=== PATIENT | male | born 1975 | race Two or more races ===

== ENCOUNTER 2023-08-12 07:31 | Inpatient (IN) | payer MEDICAID, OTHER ==
[~2023-08-12] VITALS: Ht 160 cm; Wt 80.0 kg
[2023-08-12 07:40] VITALS: PULSE 65; RESP 16; O2SAT 97
[2023-08-12 07:57] LABS: Basophils # (auto) 0.1 10 ^3/uL (0-0.2); Basophils % (auto) 0.6 % (0.0-2.0); Eosinophils # (auto) 0.1 10 ^3/uL (0-0.8); Eosinophils % (auto) 1.4 % (0.0-7.0); Hematocrit 45.2 % (41.0-53.0); Hemoglobin 15.5 g/dL (13.5-17.5); Lymphocytes % (auto) 20.4 % (10.0-50.0); Mean Corpuscular Hemoglobin 30.9 pg (28.0-32.0); Mean Corpuscular Hgb Conc. 34.2 g/dL (32.0-36.0); Mean Corpuscular Volume 90.3 fL (80.0-100.0); Monocytes # (auto) 0.8 10 ^3/uL (0-1.3); Monocytes % (auto) 7.6 % (0.0-12.0); Neutrophils # (auto) 6.9 10 ^3/uL (1.6-8.6); Nucleated Red Blood Cells % 0.2 %; Red Blood Cells 5.01 10^6/uL (4.5-5.90); White Blood Cell 9.9 10^3/uL (4.4-10.8)
[2023-08-12 08:07] LABS: Chloride 107 mmol/L (98-107); Potassium 3.6 mmol/L (3.5-5.1); Sodium 139 mmol/L (136-145)
[2023-08-12 08:08] LABS: Anion Gap 4 (5-15); Carbon Dioxide 28 mmol/L (20-30)
[2023-08-12 08:09] LABS: Calcium 9.5 mg/dL (8.5-10.1)
[2023-08-12 08:13] LABS: Glucose 114 mg/dL (74-106)
[2023-08-12 08:14] LABS: BUN/Creatinine Ratio 11.1 (10.0-20.0); Blood Urea Nitrogen 10 mg/dL (9-23)
[2023-08-12] MEDS: SODIUM CHLORIDE 0.9% 1,000 ML IVB ONE (08:23)
[2023-08-12] MEDS: KETOROLAC TROMETH 30 MG/ML 1ML VIAL IV ONE (08:23)
[2023-08-12] MEDS: ONDANSETRON HCL 4 MG/2 ML VIAL IV ONE (08:23)
[2023-08-12 08:27] LABS: Urine Bacteria NONE SEEN /hpf (None Seen); Urine Blood Negative /uL (Negative); Urine Clarity Clear (Clear); Urine Protein, UAD Negative (Negative); Urine Specific Gravity 1.018 (1.001-1.035); Urine Urobilinogen Normal (Negative); Urine WBC 1 /hpf (0 - 3); Urine pH 6.5 (5.0-8.0)
[2023-08-12 08:29] LABS: Urine Color STRAW (Yellow)
[2023-08-12] MEDS ORDERED: ACETAMINOPHEN 325 MG TAB PO PRN (09:00)
[2023-08-12] MEDS ORDERED: ONDANSETRON HCL 4 MG/2 ML VIAL IV PRN (09:00)
[2023-08-12] MEDS ORDERED: KETOROLAC TROMETH 30 MG/ML 1ML VIAL IV PRN (09:00)
[2023-08-12] MEDS: PANTOPRAZOLE 40 MG/10 ML VIAL INJ IV ONE (09:40)
[2023-08-12] MEDS: MORPHINE SULFATE 4 MG/ML SYR/VIAL IV ONE (09:40)
[2023-08-12] MEDS: SODIUM CHLORIDE 0.9% 1,000 ML IV SCH (09:41)
[2023-08-12] MEDS: PANTOPRAZOLE 40 MG/10 ML VIAL INJ IV SCH (10:00)
[2023-08-12] MEDS: ENOXAPARIN SOD 40 MG/0.4 ML SYRINGE SC SCH (10:20)
[2023-08-12 11:33] VITALS: BP 122/81; PULSE 73; RESP 18; TEMP 97.8; O2SAT 98
[2023-08-12] MEDS: HYDROcodone-ACET 5/325MG TAB PO PRN (14:02)
[2023-08-12 16:30] VITALS: BP 142/94; PULSE 69; RESP 18; TEMP 98.4; O2SAT 97
[2023-08-12 22:00] VITALS: BP 149/101; PULSE 71; RESP 20; TEMP 97.7; O2SAT 100
[2023-08-13 04:58] VITALS: BP 149/87; PULSE 79; RESP 18; TEMP 97.9; O2SAT 97
[2023-08-13 06:03] LABS: Basophils # (auto) 0.1 10 ^3/uL (0-0.2); Basophils % (auto) 0.6 % (0.0-2.0); Eosinophils # (auto) 0.2 10 ^3/uL (0-0.8); Eosinophils % (auto) 2.6 % (0.0-7.0); Hematocrit 45.3 % (41.0-53.0); Hemoglobin 15.6 g/dL (13.5-17.5); Lymphocytes # (auto) 1.8 10 ^3/uL (0.4-5.4); Lymphocytes % (auto) 19.6 % (10.0-50.0); Mean Corpuscular Hemoglobin 30.8 pg (28.0-32.0); Mean Corpuscular Hgb Conc. 34.5 g/dL (32.0-36.0); Mean Corpuscular Volume 89.3 fL (80.0-100.0); Monocytes # (auto) 0.8 10 ^3/uL (0-1.3); Monocytes % (auto) 9.2 % (0.0-12.0); Neutrophils # (auto) 6.2 10 ^3/uL (1.6-8.6); Nucleated Red Blood Cells % 0.1 %; Red Blood Cells 5.07 10^6/uL (4.5-5.90); White Blood Cell 9.1 10^3/uL (4.4-10.8)
[2023-08-13 06:23] LABS: Alanine Aminotransferase 128 U/L (7-40); Albumin 4.1 g/dL (3.2-4.8); Alkaline Phosphatase 100 U/L (46-116); Anion Gap 6 (5-15); Aspartate Aminotransferase 59 U/L (13-40); Bilirubin, Total 1.5 mg/dL (0.2-1.0); Calcium 9.1 mg/dL (8.5-10.1); Carbon Dioxide 25 mmol/L (20-30); Chloride 107 mmol/L (98-107); Glucose 91 mg/dL (74-106); Potassium 3.6 mmol/L (3.5-5.1); Sodium 138 mmol/L (136-145); Total Protein 6.6 g/dL (5.7-8.2)
[2023-08-13 06:26] LABS: BUN/Creatinine Ratio 8.3 (10.0-20.0); Blood Urea Nitrogen < 5 mg/dL (9-23)
[2023-08-13 08:00] VITALS: BP 155/82; PULSE 68; RESP 16; TEMP 98.3; O2SAT 98
[2023-08-13] MEDS ORDERED: HYDR-4902 PO (11:52)
[2023-08-13] MEDS ORDERED: ZOFR4T PO (11:52)
[2023-08-13 12:00] VITALS: BP 136/86; PULSE 78; RESP 16; TEMP 97.9; O2SAT 97
[2023-08-13 12:36] VITALS: BP 136/86; PULSE 78; RESP 16; TEMP 97.9; O2SAT 97
== END 2023-08-13 15:12 | disposition home or self-care (01) ==
LOC: ER 07:31 → EDBD 07:31 → OVERFLOW 09:12 → WEST WING 12:07
PROVIDERS: ADMIT Nurse Practitioner Family; ATTEND Internal Medicine
DX: K80.20 Calculus of gallbladder without cholecystitis without obstruction (principal); F17.210 Nicotine dependence, cigarettes, uncomplicated; Z87.442 Personal history of urinary calculi
CPT/HCPCS: 36415; 74176; 80048; 80053; 81001; 83690; 85025; 96361; 96372; 96374; 96375; C9113; G0378; J1885; J2405